=== PATIENT | male | born 1995 | race Hispanic/Latino ===

== ENCOUNTER 2023-02-24 07:46 | Day surgery (SDC) | payer BC ==
[2023-02-23 10:37] LABS: BASOPHILS % (AUTO) 0.4 % (0.0-5.0); EOSINOPHILS % (AUTO) 1.9 % (0.0-8.0); HEMATOCRIT 43.7 % (42-54); LYMPHOCYTES % (AUTO) 36.9 % (21.0-51.0); MEAN CORPUSCULAR HEMOGLOBIN 29.3 pg (27.0-33.0); MEAN CORPUSCULAR HGB CONC 33.9 g/dL (32.0-36.0); MEAN CORPUSCULAR VOLUME 86.5 fL (79-99); MONOCYTES % (AUTO) 7.3 % (3.0-13.0); NEUTROPHILS % (AUTO) 53.3 % (40.0-77.0); PLATELET COUNT (AUTO) 278 K/uL (130-400); RED BLOOD CELL COUNT(AUTO) 5.05 MIL/uL (4.50-6.20); RED CELL DISTRIBUTION WIDTH 12.4 % (11.0-15.5); WHITE BLOOD COUNT (AUTO) 8.3 K/uL (4.8-10.8)
[2023-02-23 10:48] LABS: INR 0.93 (0.85-1.15); PROTHROMBIN TIME 10.2 SEC (9.6-11.6)
[2023-02-23 10:49] LABS: CREATININE 0.7 mg/dL (0.5-1.5); POTASSIUM 4.4 mmol/L (3.5-5.1)
[2023-02-23 10:50] LABS: PARTIAL THROMBOPLASTIN TIME 30.5 SEC (26.3-35.5)
[2023-02-23 10:53] VITALS: BP 140/81
[2023-02-24] VITALS (17 sets, daily range): BP systolic 119–149; BP diastolic 60–91
[~2023-02-24] VITALS: Ht 174 cm; Wt 107.9 kg
[2023-02-24] MEDS ORDERED: LACTATED RINGERS 1000ML 1,000 ML IV ONE (08:13)
[2023-02-24] MEDS ORDERED: CEFAZOLIN SODIUM 2 GM VIAL ONE (08:13)
[2023-02-24] MEDS ORDERED: SUCCINYLCHOLINE 200MG/10ML SYR ONE (10:07)
[2023-02-24] MEDS ORDERED: LIDOCAINE PF 100MG/5ML (2%) SYRINGE 5ML ONE (10:07)
[2023-02-24] MEDS ORDERED: GLYCOPYRROLATE 1 MG/5 ML SYRINGE ONE (10:08)
[2023-02-24] MEDS ORDERED: PROPOFOL 10 MG/ML 20ML VIAL IV ONE ×2 (10:08→11:02)
[2023-02-24] MEDS ORDERED: DEXAMETHASONE SOD PHOSPHATE 10MG/ML 1ML VIAL ONE (10:08)
[2023-02-24] MEDS ORDERED: ONDANSETRON 4MG INJ ONE ×2 (10:08→14:13)
[2023-02-24] MEDS ORDERED: NEOSTIGMINE 5MG/5ML SYR IV ONE (10:09)
[2023-02-24] MEDS ORDERED: ROCURONIUM 10MG/1ML SYR 10 MG/ML ML ONE (10:09)
[2023-02-24] MEDS ORDERED: FENTANYL CITRATE PF 50 MCG/1 ML 2ML VIAL ONE (10:09)
[2023-02-24] MEDS ORDERED: MIDAZOLAM HCL 1 MG/ML 2ML VIAL ONE (10:09)
[2023-02-24] MEDS ORDERED: CEFAZOLIN SODIUM 1 GM VIAL ONE ×2 (10:46→11:45)
[2023-02-24] MEDS ORDERED: TRANEXAMIC ACID 1000MG/10ML ONE (10:46)
[2023-02-24] MEDS ORDERED: ROPIVACAINE 0.5% 5MG/ML 30ML IJ ONE (11:17)
[2023-02-24] MEDS ORDERED: CEFAZOLIN SODIUM 2 GM VIAL IVPB ONE (11:21)
[2023-02-24] MEDS ORDERED: KETOROLAC 30MG VIAL (30MG/ML) ONE (11:26)
[2023-02-24] MEDS ORDERED: MORPHINE PF 100MG/10ML AMP IV ONE (12:12)
[2023-02-24] MEDS ORDERED: MEPERIDINE-PF 25 MG/ML SYG ONE (14:13)
== END 2023-02-24 15:45 | disposition home or self-care (01) ==
LOC: DAH 07:46
PROVIDERS: ATTEND Orthopaedic Surgery
DX: S83.511A Sprain of anterior cruciate ligament of right knee, initial encounter (principal); Z20.822 Contact with and (suspected) exposure to COVID-19; S83.211A Bucket-handle tear of medial meniscus, current injury, right knee, initial encounter; M22.41 Chondromalacia patellae, right knee; M65.861 Other synovitis and tenosynovitis, right lower leg; M25.461 Effusion, right knee; E66.9 Obesity, unspecified; Z79.01 Long term (current) use of anticoagulants; Z79.899 Other long term (current) drug therapy; Z68.34 Body mass index [BMI] 34.0-34.9, adult; X58.XXXA Exposure to other specified factors, initial encounter; Y93.89 Activity, other specified; Y92.89 Other specified places as the place of occurrence of the external cause; Y99.8 Other external cause status
CPT/HCPCS: 80048; 85025; 85610; 85730; 87426; 36415; 29888; 64447; 29882; A6260; A4663; J7120; J3010; J0690 ×4; J3490 ×2; J0330; J1100; J2710; J2001; J2250; J2704 ×2; J2274; J2405 ×2; J1885; J2175; J2795; A6223; A4649 ×3; C1713 ×4; C1776; A5120; A4215; A4223; A4222; A4221; A6450